=== PATIENT | female | born 1965 | race Caucasian/White ===

== ENCOUNTER 2020-04-04 18:50 | Emergency (ER) | payer OTHER, SELFPAY ==
--- NOTE | 2020-04-04 19:08 | ED.GENADULT ---
HPI - General Adult General Chief complaint: Upper Respiratory Infection Stated complaint: Fever/Cough Time Seen by Provider: 04/04/20 19:12 Source: patient and RN notes reviewed Mode of arrival: ambulatory Limitations: no limitations History of Present Illness HPI narrative: This is a 54 years old female presented office for evaluation of cough since this morning with fever. Concern for COVID because her coworker has been tested positive. She works at the [employer]. She took Tylenol at 11 AM for her fever. Related Data Home Medications Medication Instructions Recorded Confirmed No Home Medications 04/04/20 04/04/20 Allergies Allergy/AdvReac Type Severity Reaction Status Date / Time No Known Allergies Allergy Verified 04/04/20 19:16 Review of Systems Review of Systems: Narrative: CONSTITUTIONAL: Reports fever up to 100F. ENT: Denies rhinorrhea, congestion, sore throat, otalgia. CARDIOVASCULAR: Denies chest pain, palpitation RESPIRATORY: Denies dyspnea, wheezing. Reports cough GASTROINTESTINAL: Denies abdominal pain, nausea, vomiting, diarrhea. GENITOURINARY: Denies urinary symptoms or discharge SKIN: Denies rash MUSCULOSKELETAL: Denies acute back pain NEUROLOGIC: Denies lightheaded All other systems reviewed are negative, except as documented in HPI. [facility] Past Medical History Medical History (Updated 04/04/20 @ 20:01 by TATIANA Hoyt) Diabetes mellitus, type II HTN (hypertension) Social History Social History (Updated 04/04/20 @ 20:01 by TATIANA Hoyt) Smoking status: Former smoker Comments At time of signature, I agree with nursing past medical, surgical, social and family history. There is no relevant family history pertinent to the presenting complaint. Exam Narrative: Exam Narrative: GENERAL: This is a well-nourished, well-developed patient, in no apparent distress. HEAD: normocephalic, atraumatic. EYES: PERRL. Sclera clear/white. Vision is grossly intact. EARS: External ears normal, auditory canals clear and without drainage, TMs normal without perforation. Hearing grossly intact. NOSE: External nose normal with no obvious nasal discharge, nares without redness, no rhinorrhea. THROAT: Mucous membranes moist, posterior pharynx clear. NECK: Neck supple, non-tender without lymphadenopathy, masses or thyromegaly. CARDIOVASCULAR: Regular rate and rhythm without murmurs, gallops, or rubs. RESPIRATORY: Clear to auscultation. Breath sounds equal bilaterally. No wheezes, rales, or rhonchi. GASTROINTESTINAL: Abdomen soft, non-tender, nondistended. Bowel sounds are active. No hepato-splenomegaly, or palpable masses. No guarding. SKIN: warm, intact with no suspicious lesions or rash, good texture and turgor. NEURO: awake, alert, and oriented to person, place and time. There were no obvious focal neurologic abnormalities. Steady gait EXTREMITIES: Normal range of motion. No edema. No calf tenderness. Negative Homans sign bilaterally. BACK: Nontender without deformity or crepitance. No flank tenderness. Nicholas Coma Scale Eye Opening: Spontaneous 4 Nicholas Coma Scale Motor: Obeys Commands 6 Nicholas Coma Scale Verbal: Oriented 5 Course Vital Signs Vital signs: Vital Signs Temperature 99.3 F 04/04/20 19:10 Pulse Rate 91 04/04/20 19:10 Respiratory Rate 20 04/04/20 19:10 Blood Pressure 142/84 H 04/04/20 19:10 Pulse Oximetry 99 04/04/20 19:10 Temperature 99.3 F 04/04/20 19:10 Pulse Rate 91 04/04/20 19:10 Respiratory Rate 20 04/04/20 19:10 Blood Pressure 142/84 H 04/04/20 19:10 Pulse Oximetry 99 04/04/20 19:10 Medical Decision Making MDM Narrative Medical decision making narrative: Discharge instructions reviewed with patient, as well as provided in writing per nursing staff. The instructions also include specific and strict return/GO TO THE ER as well as f/u information. All questions have been answered, and the patient deny any
[2020-04-04 19:10] VITALS: BP 142/84; PULSE 91; RESP 20; TEMP 37.4; O2SAT 99
== END 2020-04-04 19:45 | disposition home or self-care (01) ==
PROVIDERS: Emergency Provider Nurse Practitioner
DX: R05 Cough (principal); R50.9 Fever, unspecified; E11.9 Type 2 diabetes mellitus without complications; I10 Essential (primary) hypertension; Z87.891 Personal history of nicotine dependence; Z20.828 Contact with and (suspected) exposure to other viral communicable diseases
CPT/HCPCS: 99211; G0463